=== PATIENT | male | born 1950 | race Caucasian/White ===

== ENCOUNTER 2021-04-26 12:59 | Outpatient (RCR) | payer MEDICARE, SELFPAY ==
--- NOTE | 2021-04-26 16:23 | PTOPEVAL ---
Thank you for referring Daniel Menendez to [facility].? The patient is scheduled to be seen for therapy? ____x/week for ___ weeks. Please review, sign, date and return this plan of care RACHELE. I agree with and certify that the following plan of care is medically necessary. Referring Physician Date Admitting Provider: Attending Provider: EIR ALANIZ Referring Provider: *PT Outpatient Evaluation Start: 04/26/21 13:10 Freq: Status: Active Protocol: Document 04/26/21 13:00 [facility] (Rec: 04/26/21 15:07 [facility] [id number]) Therapy Assessment Status Assessment Status Assessment Status Evaluation Evaluation Information Problem Diagnosis s/p fib fracture R ankle; right knee pain Onset 03/13/21 Additional Evaluation Detail LEFS = 62% functionally declined Subjective Information Daniel Menendez is a 71 year old Query Text:As Reported By Patient/ male who [facility] s/p fib fracture of the right ankle on 03/13/21. He describes it as a minimally displaced acute distal fib fx. Was casted for 5 weeks. He has been in a boot for 1 week as of now and was told by his MD to ambulate with his boot and crutch, but is WBAT. Prior Level of Function Comments Additional Prior Level of Function regular ambulation, fishing; Comments works as a [employer] Pain Assessment Timing of Pain Assessment Timing of Pain Assessment Assessment Pain Scale Pain Scale Used Numeric (1 - 10) Self Report Pain Assessment Right Knee(s) Reported Pain Level 3 Lowest Pain Intensity 0 Greatest Pain Intensity 5 Right Ankle(s) Reported Pain Level 2 Lowest Pain Intensity 0 Pain Score Pain Score 2,3: Self Report Interventions Used Interventions Used By Clinicians Activity or ADL's,Education, Exercise Lower Extremity Range of Motion Knee Range of Motion Right Knee Flexion Range of Motion - Active 118 Knee Flexion Range of Motion - Passive 125 Knee Extension Range of Motion - Active 0 Query Text: Knee Extension Range of Motion - Passive 0 Left Knee Flexion Range of Motion - Active 131 Knee Flexion Range of Motion - Passive 135 Knee Extension Range of Motion - Active 0 Query Text: Knee Extension Range of Motion - Passive 0 Ankle/Foot Range of Motion Right Ankle Dorsiflexion With Knee Extension -5 Range of Motion - Passive Ankle Dorsiflexion With Knee Flexed
--- NOTE | 2021-07-16 16:01 | PCPTNOTE ---
patient has not been to therapy in over a month. as of this date, he will be dc'd from skilled PT services and all progress towards goals will be taken from his most recent evaluation/note. [facility]
== END 2021-05-10 09:00 | disposition home or self-care (01) ==
LOC: CHSPT 12:59
DX: S82.401D Unspecified fracture of shaft of right fibula, subsequent encounter for closed fracture with routine healing (principal)
CPT/HCPCS: 97110; 97161; 97530